=== PATIENT | female | born 1965 | race Two or more races ===

== ENCOUNTER 2023-08-22 08:57 | Inpatient (IN) | payer OTHER ==
[~2023-08-22] VITALS: Ht 157.5 cm; Wt 59.1 kg
[2023-08-22] MEDS ORDERED: METH10SO PO (09:51)
[2023-08-22] MEDS ORDERED: SODIUM CHLORIDE 0.9% 1,000 ML IV ONE (10:15)
[2023-08-22] MEDS ORDERED: ONDANSETRON HCL 4 MG/2 ML VIAL IVP ONE (10:15)
[2023-08-22 10:58] LABS: EOSINOPHILS % (AUTO) 0.1 % (1.0-6.0); HEMATOCRIT 36.5 % (36-46); HEMOGLOBIN 11.9 g/dL (12.0-16.0); LYMPHOCYTES # (AUTO) 0.4 K/uL (1.0-4.8); MEAN CORPUSCULAR HGB CONC 32.7 G/dL (31.0-37.0); MEAN CORPUSCULAR VOLUME 86 fL (80-100); MONOCYTES # (AUTO) 0.4 K/uL (0.1-1.0); NEUTROPHILS # (AUTO) 7.9 K/uL (1.8-7.7); PLATELET COUNT (AUTO) 324 K/uL (150-450); RED BLOOD CELL COUNT(AUTO) 4.26 MIL/uL (4.00-5.20); RED CELL DISTRIBUTION WIDTH 15.2 % (11.5-14.5); WHITE BLOOD COUNT (AUTO) 8.9 K/uL (4.5-11.0)
[2023-08-22 11:10] LABS: ANION GAP 11 mmol/L (8-16); CALCIUM, TOTAL 9.7 mg/dL (8.8-10.5); CARBON DIOXIDE 27 mmol/L (22-29); CHLORIDE 102 mmol/L (98-107); CREATININE 0.79 mg/dL (0.60-1.30); GLOMERULAR FILTR. RATE CALC > 60 mL/min (>60); GLUCOSE,RANDOM 87 mg/dL (70-110); NEUTROPHILS % (AUTO) 88.9 % (40.0-70.0); POTASSIUM 3.3 mmol/L (3.5-5.1); SODIUM SERUM 140 mmol/L (136-145); UREA NITROGEN, BLOOD 16 mg/dL (7-18)
[2023-08-22 11:15] LABS: ALANINE AMINOTRANSFERASE 20 U/L (12-78); ALBUMIN 3.5 g/dL (3.4-5.0); ALKALINE PHOSPHATASE 99 U/L (46-116); ASPARTATE AMINOTRANSFERASE 19 U/L (15-37); BILIRUBIN,TOTAL 0.3 mg/dL (0.1-1.0); LIPASE 25 U/L (16-77); TOTAL PROTEIN, SERUM 7.1 g/dL (6.4-8.2)
[2023-08-22 11:17] LABS: TROPONIN I-HIGH SENSITIVITY 5 ng/L (<51)
[2023-08-22 11:18] LABS: LACTIC ACID 1.7 mmol/L (0.4-2.0)
[2023-08-22 11:30] LABS: B-TYPE NATRIURETIC PEPTIDE 20 pg/mL (0-100)
[2023-08-22] MEDS ORDERED: ACETAMINOPHEN 500 MG TABLET PO ONE (12:15)
[2023-08-22] MEDS ORDERED: METHADONE HCL 10 MG TABLET PO ONE (13:30)
[2023-08-22 13:32] LABS: INFLUENZA A-RTPCR,COMBO NEGATIVE (NEGATIVE); INFLUENZA B-RTPCR,COMBO NEGATIVE (NEGATIVE); RESPIRATORY SYNCYTIAL VRS-PCR NEGATIVE (NEGATIVE); SARS COVID19 RTPCR, COMBO NEGATIVE (NEGATIVE)
[2023-08-22 13:42] LABS: APPEARANCE,URINE HAZY (CLEAR); BILIRUBIN,URINE NEGATIVE (NEGATIVE); COLOR,URINE YELLOW (YELLOW); GLUCOSE, URINE (UA) NEGATIVE (NEGATIVE); KETONES,URINE 40-60 mg/dL (NEGATIVE); LEUKOCYTE ESTERASE ,URINE NEGATIVE (NEGATIVE); NITRATE,URINE NEGATIVE (NEGATIVE); OCCULT BLOOD,URINE TRACE (NEGATIVE); PROTEIN,URINE 300-600,SEE CONFIRM mg/dL (NEGATIVE); SPECIFIC GRAVITIY, URINE 1.021 (1.003-1.030)
[2023-08-22 13:52] LABS: ALCOHOL, URINE DRUG SCREEN NEGATIVE (NEGATIVE); AMPHET/METH SCREEN,URINE POSITIVE (NEGATIVE); BARBITURATE SCREEN, URINE NEGATIVE (NEGATIVE); BENZODIAZEPINES SCREEN,URINE NEGATIVE (NEGATIVE); CANNABINOID SCREEN,URINE NEGATIVE (NEGATIVE); COCAINE SCREEN,URINE NEGATIVE (NEGATIVE); METHADONE SCREEN, URINE POSITIVE (NEGATIVE); OPIATE SCREEN,URINE NEGATIVE (NEGATIVE); PHENCYCLIDINE SCREEN,URINE NEGATIVE (NEGATIVE)
[2023-08-22 14:10] LABS: SULFOSALICYLIC ACID,URINE 3+ (Negative)
[2023-08-22 14:11] LABS: BACTERIA,URINE Many /HPF (None Seen); RBC,URINE 0-2 /HPF (0-2); SQUAMOUS EPITHELIAL CELL,UR Few /LPF (None Seen); WBC,URINE 0-2 /HPF (0-5)
[2023-08-22] MEDS ORDERED: LOPERAMIDE HCL 2 MG CAPSULE PO PRN (14:30)
[2023-08-22] MEDS ORDERED: POTASSIUM CHL 10 MEQ/WATER 50 ML IV PRN (14:30)
[2023-08-22] MEDS ORDERED: ALBUTEROL SULFATE HFA 90 MCG/PUFF 8 GM INHALER IH PRN (14:30)
[2023-08-22] MEDS ORDERED: METOCLOPRAMIDE HCL 5 MG/ML 2 ML VIAL IVP PRN (14:30)
[2023-08-22] MEDS ORDERED: POTASSIUM CHLORIDE 20 MEQ ER TABLET PO PRN (14:30)
[2023-08-22 16:40] VITALS: BP 125/83; PULSE 96; RESP 18; TEMP 98.7
[2023-08-22] MEDS: LORazepam 2 MG/ML VIAL IVP PRN (19:16)
[2023-08-22 20:15] VITALS: BP 140/75; PULSE 93; RESP 18; TEMP 98.4
[2023-08-22] MEDS: TEMAZEPAM 15 MG CAPSULE PO SCH (22:22)
[2023-08-23 04:26] VITALS: BP 117/72; PULSE 96; RESP 18; TEMP 98
[2023-08-23 07:23] LABS: BASOPHILS % (AUTO) 0.8 % (0.0-2.0); EOSINOPHILS % (AUTO) 1.3 % (1.0-6.0); HEMATOCRIT 34.6 % (36-46); HEMOGLOBIN 11.7 g/dL (12.0-16.0); LYMPHOCYTES # (AUTO) 0.9 K/uL (1.0-4.8); MEAN CORPUSCULAR HEMOGLOBIN 28.7 pg (26.0-34.0); MEAN CORPUSCULAR HGB CONC 33.6 G/dL (31.0-37.0); MEAN CORPUSCULAR VOLUME 85 fL (80-100); MONOCYTES # (AUTO) 0.6 K/uL (0.1-1.0); MONOCYTES % (AUTO) 9.2 % (2.0-9.0); NEUTROPHILS # (AUTO) 4.7 K/uL (1.8-7.7); NEUTROPHILS % (AUTO) 74.7 % (40.0-70.0); PLATELET COUNT (AUTO) 300 K/uL (150-450); RED BLOOD CELL COUNT(AUTO) 4.06 MIL/uL (4.00-5.20); RED CELL DISTRIBUTION WIDTH 14.7 % (11.5-14.5); WHITE BLOOD COUNT (AUTO) 6.4 K/uL (4.5-11.0)
[2023-08-23 07:40] LABS: ANION GAP 10 mmol/L (8-16); CALCIUM, TOTAL 8.5 mg/dL (8.8-10.5); CARBON DIOXIDE 25 mmol/L (22-29); CHLORIDE 104 mmol/L (98-107); CREATININE 0.63 mg/dL (0.60-1.30); GLOMERULAR FILTR. RATE CALC > 60 mL/min (>60); GLUCOSE,RANDOM 68 mg/dL (70-110); POTASSIUM 3.7 mmol/L (3.5-5.1); SODIUM SERUM 139 mmol/L (136-145); UREA NITROGEN, BLOOD 13 mg/dL (7-18)
[2023-08-23] MEDS: NICOTINE 7 MG/24 HOUR PATCH TD SCH (08:20)
[2023-08-23 09:02] VITALS: BP 133/79; PULSE 98; RESP 18; TEMP 98.6
[2023-08-23 12:00] VITALS: BP 120/74; PULSE 98; RESP 17; TEMP 98.3
[2023-08-23 12:36] LABS: GLUCOMETER DEV NAME(LOC) 5S.1B; GLUCOSE,POINT OF CARE 73 MG/DL (70-110)
[2023-08-23 12:36] LABS: GLUCOMETER DEV NAME(LOC) 5S.1B; GLUCOSE,POINT OF CARE 62 MG/DL (70-110)
[2023-08-23 16:00] VITALS: BP 121/80; PULSE 98; RESP 18; TEMP 98
[2023-08-23] MEDS: LORazepam 2 MG/ML VIAL IVP PRN (16:12)
[2023-08-23 20:00] VITALS: BP 127/80; PULSE 106; RESP 18; TEMP 98.3
[2023-08-23] MEDS: TEMAZEPAM 15 MG CAPSULE PO SCH (20:45)
[2023-08-24] VITALS: BP 107/60; PULSE 97; RESP 18; TEMP 98.3
[2023-08-24] MEDS: LORazepam 2 MG/ML VIAL IVP PRN (00:49)
[2023-08-24 07:26] LABS: BASOPHILS % (AUTO) 0.8 % (0.0-2.0); EOSINOPHILS % (AUTO) 2.4 % (1.0-6.0); HEMATOCRIT 35.5 % (36-46); LYMPHOCYTES # (AUTO) 0.8 K/uL (1.0-4.8); LYMPHOCYTES % (AUTO) 10.3 % (22.0-44.0); MEAN CORPUSCULAR HEMOGLOBIN 28.4 pg (26.0-34.0); MEAN CORPUSCULAR HGB CONC 33.6 G/dL (31.0-37.0); MEAN CORPUSCULAR VOLUME 84 fL (80-100); MONOCYTES # (AUTO) 0.7 K/uL (0.1-1.0); MONOCYTES % (AUTO) 9.1 % (2.0-9.0); NEUTROPHILS # (AUTO) 6.1 K/uL (1.8-7.7); NEUTROPHILS % (AUTO) 77.4 % (40.0-70.0); PLATELET COUNT (AUTO) 314 K/uL (150-450); RED BLOOD CELL COUNT(AUTO) 4.21 MIL/uL (4.00-5.20); RED CELL DISTRIBUTION WIDTH 14.8 % (11.5-14.5); WHITE BLOOD COUNT (AUTO) 7.9 K/uL (4.5-11.0)
[2023-08-24 07:47] LABS: ANION GAP 8 mmol/L (8-16); CARBON DIOXIDE 27 mmol/L (22-29); CHLORIDE 101 mmol/L (98-107); CREATININE 0.66 mg/dL (0.60-1.30); GLOMERULAR FILTR. RATE CALC > 60 mL/min (>60); GLUCOSE,RANDOM 93 mg/dL (70-110); POTASSIUM 3.5 mmol/L (3.5-5.1); SODIUM SERUM 136 mmol/L (136-145); UREA NITROGEN, BLOOD 10 mg/dL (7-18)
[2023-08-24 08:00] VITALS: BP 136/80; PULSE 104; RESP 18; TEMP 97.5
[2023-08-24] MEDS: NICOTINE 7 MG/24 HOUR PATCH TD SCH (08:06)
[2023-08-24 12:00] VITALS: BP 132/80; PULSE 106; RESP 19; TEMP 97.9
[2023-08-24 16:00] VITALS: BP 126/66; PULSE 103; RESP 18; TEMP 98.2
[2023-08-24] MEDS ORDERED: HydrOXYzine PAMOATE 25 MG CAPSULE PO PRN (16:45)
[2023-08-24 17:31] VITALS: BP 118/69; PULSE 99; RESP 20; TEMP 98.7
[2023-08-24 20:14] VITALS: BP 140/71; PULSE 111; RESP 20; TEMP 98.1
[2023-08-24] MEDS ORDERED: HydrOXYzine HCL 25 MG TABLET PO SCH (21:00)
[2023-08-24] MEDS: TEMAZEPAM 15 MG CAPSULE PO SCH (21:36)
[2023-08-24] MEDS: DICYCLOMINE HCL 10 MG CAPSULE PO PRN (21:36)
[2023-08-25 05:05] VITALS: BP 104/66; PULSE 102; RESP 18; TEMP 98.2
[2023-08-25 07:58] LABS: BASOPHILS % (AUTO) 0.9 % (0.0-2.0); EOSINOPHILS % (AUTO) 1.5 % (1.0-6.0); HEMATOCRIT 39.3 % (36-46); HEMOGLOBIN 13.1 g/dL (12.0-16.0); LYMPHOCYTES # (AUTO) 0.9 K/uL (1.0-4.8); LYMPHOCYTES % (AUTO) 10.8 % (22.0-44.0); MEAN CORPUSCULAR HEMOGLOBIN 28.2 pg (26.0-34.0); MEAN CORPUSCULAR HGB CONC 33.3 G/dL (31.0-37.0); MEAN CORPUSCULAR VOLUME 85 fL (80-100); MONOCYTES # (AUTO) 0.6 K/uL (0.1-1.0); MONOCYTES % (AUTO) 7.7 % (2.0-9.0); NEUTROPHILS # (AUTO) 6.3 K/uL (1.8-7.7); NEUTROPHILS % (AUTO) 79.1 % (40.0-70.0); PLATELET COUNT (AUTO) 327 K/uL (150-450); RED BLOOD CELL COUNT(AUTO) 4.64 MIL/uL (4.00-5.20); WHITE BLOOD COUNT (AUTO) 7.9 K/uL (4.5-11.0)
[2023-08-25 07:59] LABS: ANION GAP 12 mmol/L (8-16); CALCIUM, TOTAL 9.1 mg/dL (8.8-10.5); CARBON DIOXIDE 24 mmol/L (22-29); CHLORIDE 100 mmol/L (98-107); GLOMERULAR FILTR. RATE CALC > 60 mL/min (>60); GLUCOSE,RANDOM 99 mg/dL (70-110); POTASSIUM 3.5 mmol/L (3.5-5.1); SODIUM SERUM 136 mmol/L (136-145); UREA NITROGEN, BLOOD 11 mg/dL (7-18)
[2023-08-25] MEDS: NICOTINE 7 MG/24 HOUR PATCH TD SCH (09:00)
[2023-08-25] MEDS: DICYCLOMINE HCL 10 MG CAPSULE PO PRN (09:28)
[2023-08-25 10:28] VITALS: BP 126/74; PULSE 100; RESP 18; TEMP 98.1
[2023-08-25 10:29] VITALS: BP 126/74; PULSE 100; RESP 18; TEMP 98.1
[2023-08-25] MEDS ORDERED: [UNRECOGNIZED DRUG - OTHER] IH (12:07)
[2023-08-25] MEDS ORDERED: vistaril PO (12:10)
[2023-08-25] MEDS ORDERED: HYDR-4808 PO (12:41)
== END 2023-08-25 19:15 | DRG 897 ==
LOC: EMS 08:58 → 5S 14:38 → 6S 08-24 16:55
PROVIDERS: ADMIT Internal Medicine; ATTEND Internal Medicine
DX: F11.20 Opioid dependence, uncomplicated (principal); J44.1 Chronic obstructive pulmonary disease with (acute) exacerbation; E87.6 Hypokalemia; Z20.822 Contact with and (suspected) exposure to COVID-19; F41.9 Anxiety disorder, unspecified; Z79.899 Other long term (current) drug therapy
CPT/HCPCS: 0241U; 71045; 80048; 80053; 80307; 81001; 81002; 82962; 83605; 83690; 83880; 84132; 84145; 84484; 85025; 87040; 87086; 87186; 93005; 99285; J2060; J2405; J2765; 36415-L1; 36415-TC